=== PATIENT | male | born 1990 | race Caucasian/White ===

== ENCOUNTER 2019-10-09 05:57 | Emergency (ER) | payer OTHER ==
[~2019-10-09] VITALS: Ht 180.3 cm; Wt 79.4 kg
[2019-10-09 06:06] VITALS: BP 105/60
--- NOTE | 2019-10-09 06:06 | NUR ---
PT TO ER BED 8
--- NOTE | 2019-10-09 06:17 | NUR ---
29 Y/O MALE PRESENTS TO ED, C/O ABDOMINAL PAIN 08/08. PT STATES PAIN STARTED 3 DAYS AGO AND WORSENING SINCE THEN. NON RADIATING LEFT ABDOMINAL PAIN, SOFT AND TENDER TO TOUCH. BS ACTIVE X4 QUADRANTS. PT HAS N/V/D; LAST VOMITING EPISODE WAS LAST NIGHT, LAST DIARRHEA EPISODE WAS YESTERDAY AFTERNOON. PT UNABLE TO TOLERATE FOOD, ABLE TO TOLERATE FLUIDS. PT STATES HAVING FEVER; AFEBRILE DURING ASSESSMENT. PT TAKES TYLENOL WITH MILD RELIEF. NO SOB/DIFFICULTY BREATHING NOTED. PT DENIES ANY CHEST PAIN. ERMD AWARE. WILL CONTINUE TO MONITOR.
[2019-10-09] MEDS ORDERED: ONDANSETRON 4 MG/2 ML VIAL IVP ONE (06:40)
[2019-10-09] MEDS ORDERED: NACL 0.9% 1,000 ML IV ONE (06:40)
[2019-10-09] MEDS ORDERED: KETOROLAC 30 MG/ML VIAL IVP ONE (06:40)
[2019-10-09 07:23] VITALS: BP 105/60
--- NOTE | 2019-10-09 07:23 | NUR ---
PT DISCHARGED WITH PAPERWORK. RX ZOFRAN, NAPROXEN. EDUCATED PT REGARDING MEDICATIONS AND S/E. EDUCATED PT REGARDING D/C DIAGNOSIS AND INSTRUCTIONS. PT VERBALIZED UNDERSTANDING OF TEACHING. TOLD PT TO FOLLOW UP WITH PCP AND WHEN TO RETURN TO ED. PT AT STABLE CONDITION. ALL QUESTIONS ANSWERED.
== END 2019-10-09 07:23 | disposition home or self-care (01) ==
LOC: MED 05:57
DX: R10.84 Generalized abdominal pain (principal); R11.2 Nausea with vomiting, unspecified; R19.7 Diarrhea, unspecified; R50.9 Fever, unspecified
CPT/HCPCS: 81002; 87804; 96361; 96374; 96375; 99283; J1885; J2405